=== PATIENT | male | born 1945 | race Caucasian/White ===

== ENCOUNTER → 2025-02-01 12:36 | Outpatient (REF) | payer MEDICARE, SELFPAY | LOC: RAD 12:36 | PROVIDERS: ATTENDING PHYSICIAN Specialist; FAMILY PHYSICIAN Internal Medicine | DX: R31.9 Hematuria, unspecified (principal) | CPT/HCPCS: 74176 ==

== ENCOUNTER 2025-02-13 06:16 | Day surgery (SDC) | payer MEDICARE, SELFPAY ==
[2025-02-05 14:11] VITALS: BMI 31.9
[2025-02-13] VITALS (12 sets, daily range): BP systolic 79–161; BP diastolic 58–83; BMI 31.9
[2025-02-13 08:57] LABS: Glucose - Point of Care 148 mg/dl (70-99)
[2025-02-13] MEDS: NORMOSOL-R/PLASMALYTE-A 1000 IV (09:01)
[2025-02-13 10:54] LABS: Glucose - Point of Care 110 mg/dl (70-99)
== END 2025-02-13 13:05 | disposition home or self-care (01) ==
LOC: SDS 06:16
PROVIDERS: ATTENDING PHYSICIAN Specialist; FAMILY PHYSICIAN Internal Medicine
DX: N35.911 Unspecified urethral stricture, male, meatal (principal); N30.20 Other chronic cystitis without hematuria
CPT/HCPCS: 52204; 76000; 82962; 87077; 87086; 87186; 88305

== ENCOUNTER 2025-03-02 10:38 | Inpatient (IN) | payer MEDICARE, SELFPAY ==
--- NOTE | 2025-02-23 10:54 | PTCARENOTE ---
Charlotte in office made aware of urine culture result from 02/13/25.
[2025-03-02] VITALS (14 sets, daily range): BP systolic 131–185; BP diastolic 65–83; BMI 32.3
[2025-03-02 07:48] LABS: Glucose - Point of Care 125 mg/dl (70-99)
--- NOTE | 2025-03-02 09:38 | W.PN.ADMIT ---
Progress Note - Admit
Progress Note - Admit
pt s/p TURP
admit for antibx and CBI
[2025-03-02 09:47] LABS: Glucose - Point of Care 120 mg/dl (70-99)
[2025-03-02 10:31] LABS: Hematocrit 41.7 % (39.0-52.0); Hemoglobin 14.5 g/dL (13.0-18.0); Mean Corp Hgb Conc. 34.8 g/dL (33.0-37.0); Mean Corpuscular Volume 89.3 fL (80.0-94.0); Platelet Count 198 10^3/uL (130-400); Red Cell Dist. Width 14.0 % (11.5-14.5)
--- NOTE | 2025-03-02 10:47 | CON.CAR ---
Addendum entered and electronically signed by Doroteo Don MD 03/02/25 12:29:
I saw and examined the patient.
The Hearing Aid Repairer's note was reviewed and I agree with the note.
Comment:
GEN: No distress, awake, Ox3
HEENT: supple, anicteric, mmm
LUNGS: CTA, no wheezes/rales
CV: Reg, S1/S2, 1/6 syst LSB, no gallop
ABD: soft, BS+, NT/ND
EXT: No edema
NEURO: Gross non-focal
SKIN: No rash
Plan:
80-year-old male with past medical history of hypertension, hyperlipidemia, diabetes and tremors presents for elective TURP procedure today. Patient was found on heart monitor to have heart block, second-degree Mobitz type I. The patient denies
any history of syncope, lightheadedness or previous heart issues. Prior EKG does have first-degree AV block with right bundle branch block. The patient does take propranolol 120 mg daily for tremors.
Recommend hold propranolol and continue to follow on telemetry. No indication for pacemaker at this time.
His blood pressure is elevated. Would continue hydralazine and lisinopril.
Will check echocardiogram. Cardiac troponin is negative.
Original Note:
Consultation
Consultation Request
Date/Time Consultation Performed: 03/02/25
Requesting Provider: Dr. Sharma
Performing Provider: Maria D Mishra PA-C for Dr. Don
Reason for Consultation: bradycardia
Medical History
-
Chief Complaint: TURP
History of Present Illness:
Patient is an 80 yo M with PMH of HTN, HLD, DM2, tremor, recurrent UTI, BPH who underwent TURP procedure today. Post procedure noted to have bradycardia with concern for heart block resulting in cardiology consultation. Patient has never needed to
see a quality reviewer before. He denies lightheadedness/dizziness, presyncope or syncope as OP. He is on propranolol 120mg HS due to tremor. Cardiology consulted for evaluation.
PMH:
HTN
HLD
DM2
tremor
recurrent UTI
BPH
Past Medical History
Past Medical History: Other (in HPI)
Social History
Tobacco: Non-Smoker
Personal:
Living: With Family
Allergies / Home Medications
Allergy/AdvReac Type Severity Reaction Status Date / Time
No Known Allergies Allergy Verified 03/02/25 07:41
�Medication �Instructions �Recorded �Confirmed �Type
doxepin 3 mg tablet 3 mg PO HS 02/06/25 03/02/25 History
finasteride 5 mg tablet 5 mg PO DAILY 02/06/25 03/02/25 History
hydralazine 50 mg tablet 50 mg PO BID 02/06/25 03/02/25 History
insulin degludec 100 unit/mL (3 32 unit SC BID 02/06/25 03/02/25 History
mL) subcutaneous pen (Tresiba
FlexTouch U-100 insulin)
latanoprost (PF) 0.005 % eye drops 1 drp ophthalmic (eye) QPM 02/06/25 03/02/25 History
in a dropperette
lisinopril 20 mg tablet 20 mg PO DAILY 02/06/25 03/02/25 History
melatonin 10 mg tablet 10 mg PO HS PRN INSOMNIA 02/06/25 03/02/25 History
metformin 500 mg tablet,extended 500 mg PO DAILY 02/06/25 03/02/25 History
release 24hr (osmotic)
primidone 50 mg tablet 250 mg PO BID 02/06/25 03/02/25 History
propranolol 60 mg capsule,24 120 mg PO HS TREMORS 02/06/25 03/02/25 History
hr,extended release
tamsulosin 0.4 mg capsule 0.4 mg PO BID 02/06/25 03/02/25 History
Review of Systems
-
History Source: Patient
All other systems: Negative unless noted
Physical Exam
Vital Signs
Temp Pulse Resp BP Pulse Ox
97.6 F 49 16 150/75 92
03/02/25 09:45 03/02/25 10:20 03/02/25 10:20 03/02/25 10:20 03/02/25 10:30
Lab Results
03/02/25 10:21
Physical Exam
General: No Apparent Distress and Comfortable
HEENT: Normocephalic, Anicteric and Moist Mucous Membranes
Respiratory: Clear and Non Labored Respirations
Cardiac: S1/S2, Regular Rhythm and Other (sofiya)
GI: Soft, Non Tender, Non Distended and Normal Bowel Sounds
Musculoskeletal: No Clubbing, No Cyanosis and Edema (trace of B/L LE)
Skin: Warm and Dry
Neuro: AO x 3
Impression / Plan
-
Primary Home Sales Service Professional: none prior to admission
Assessment:
s/p TURP 03/02/25
[place], asymptomatic
HTN
HLD
DM2
tremor
recurrent UTI
BPH
ECHO 03/02/25: pending
Plan:
- Patient presented for elective TURP procedure 03/02/2025
- Cardiology consulted while patient in PACU due to concern for heart block and bradycardia
- On review of EKG, appears to be in [place]. Patient asymptomatic. Likely secondary to chronic propranolol 120 mg nightly and anesthesia
- Would hold propranolol today and following on tele. consider resuming propranolol at lower dose in AM
- Check echo
- Check TSH
- given hypertension, would continue OP lisinopril and order IV hydralazine PRN
- d/w PACU nursing, urology
Data Reviewed
-
EKG: Tracing Personally Visualized and interpreted
Labs: Labs Reviewed by me
Old Records: Reviewed
[2025-03-02 10:48] LABS: INR 1.15; PT 15.0 Sec (11.4-14.6)
[2025-03-02 10:49] LABS: APTT 31.9 Sec (23.4-35.0)
[2025-03-02 10:51] LABS: ALT (SGPT) 28 U/L (0-50); AST (SGOT) 33 U/L (17-59); Albumin 3.7 g/dl (3.5-5.0); Alkaline Phosphatase 82 U/L (38-126); Blood Urea Nitrogen 18 mg/dl (9-20); Calcium 8.3 mg/dl (8.4-10.2); Carbon Dioxide 28 mmol/L (22-30); Chloride 99 mmol/L (98-107); Estimated Creatinine Clearance 68 ml/min; Glucose 125 mg/dl (70-99); Potassium 4.0 mmol/L (3.5-5.1); Sodium 134 mmol/L (135-145); Total Protein 6.7 g/dl (6.3-8.2); eGFR > 60.00
--- NOTE | 2025-03-02 10:54 | W.PN.UPDATE ---
Update Note
Progress Note Update
in pacu- pt had asymptomatic bradycardia
stable
urine clear
cardiology consulted- will observe on tele for now
updated
[2025-03-02 11:01] LABS: Troponin I < 0.012 ng/ml
[2025-03-02] MEDS: APRESOLINE 5 MG IV (12:17)
[2025-03-02 12:34] LABS: Glucose - Point of Care 109 mg/dl (70-99)
[2025-03-02] MEDS: NOVOLOG FLEXPEN-LOW RESISTANCE SC (12:41)
[2025-03-02] MEDS: NSS 1000 IV ×2 (12:42→22:27)
--- NOTE | 2025-03-02 15:10 | PTCARENOTE ---
Per Dr. Sharma's order, released harvey traction/rubber band; patient resting comfortably.
[2025-03-02 16:17] LABS: Glucose - Point of Care 243 mg/dl (70-99)
[2025-03-02] MEDS: AMOXIL 500 MG PO (16:50)
[2025-03-02] MEDS: NOVOLOG FLEXPEN-LOW RESISTANCE 2 UNITS SC (16:52)
[2025-03-02] MEDS: XALATAN OPHTHALMIC SOLUTION 1 DROP BOTH EYES (18:11)
[2025-03-02] MEDS: APRESOLINE 50 MG PO (19:56)
[2025-03-02] MEDS: FLORASTOR 250 MG PO (19:56)
[2025-03-02] MEDS: MYSOLINE 250 MG PO (19:56)
[2025-03-02] MEDS: FLOMAX 0.4 MG PO (19:57)
[2025-03-02] MEDS: COLACE 100 MG PO (19:57)
[2025-03-02] MEDS: LANTUS 0.32 UNITS SC (20:42)
[2025-03-02 21:43] LABS: Glucose - Point of Care 205 mg/dl (70-99)
[2025-03-02] MEDS: INDERAL LA 120 MG PO (22:22)
[2025-03-02] MEDS: SINEQUAN 3 MG PO (22:27)
[2025-03-03] MEDS: AMOXIL 500 MG PO ×4 (00:47→23:55)
[2025-03-03 02:39] VITALS: BP 160/73
--- NOTE | 2025-03-03 05:25 | PTCARENOTE ---
SBAR: PT is on tele and has had changes to A fib/is on cardiac meds , tele shows heart block pt has now changes form Mobitz I to Mobitz II and is in and out of A-fib, am MAG and EKG ordered. Cardiac consulted noted and propranolol placed on hold
per LINUX NETWORK ENGINEER
--- NOTE | 2025-03-03 05:29 | SUR.OPER ---
EKG: SR with Mobit II 2nd degree heart block RBBB BAR MACHINE OPERATOR PRODUCTION notified
[2025-03-03 06:34] LABS: Hematocrit 42.8 % (39.0-52.0); Hemoglobin 14.6 g/dL (13.0-18.0); Mean Corp Hgb Conc. 34.1 g/dL (33.0-37.0); Mean Corpuscular Volume 90.5 fL (80.0-94.0); Platelet Count 209 10^3/uL (130-400); Red Cell Dist. Width 13.6 % (11.5-14.5)
[2025-03-03 06:35] LABS: Glucose - Point of Care 60 mg/dl (70-99)
[2025-03-03 06:58] LABS: ALT (SGPT) 24 U/L (0-50); AST (SGOT) 30 U/L (17-59); Albumin 3.6 g/dl (3.5-5.0); Alkaline Phosphatase 69 U/L (38-126); Blood Urea Nitrogen 12 mg/dl (9-20); Calcium 8.3 mg/dl (8.4-10.2); Carbon Dioxide 26 mmol/L (22-30); Chloride 106 mmol/L (98-107); Estimated Creatinine Clearance 76 ml/min; Glucose 63 mg/dl (70-99); Magnesium 2.0 mg/dl (1.6-2.3); Potassium 3.9 mmol/L (3.5-5.1); Sodium 137 mmol/L (135-145); Total Protein 6.4 g/dl (6.3-8.2); eGFR > 60.00
[2025-03-03 07:00] LABS: Glucose - Point of Care 81 mg/dl (70-99)
[2025-03-03] MEDS: NOVOLOG FLEXPEN-LOW RESISTANCE SC ×2 (07:20→11:49)
[2025-03-03 07:25] VITALS: BP 156/66
[2025-03-03] MEDS: APRESOLINE 50 MG PO ×3 (08:21→21:26)
[2025-03-03] MEDS: PROSCAR 5 MG PO (08:21)
[2025-03-03] MEDS: FLOMAX 0.4 MG PO ×2 (08:21→20:08)
[2025-03-03] MEDS: COLACE 100 MG PO (08:21)
[2025-03-03] MEDS: ZESTRIL 20 MG PO (08:21)
[2025-03-03] MEDS: GLUCOPHAGE XR EXTENDED RELEASE 500 MG PO (08:21)
[2025-03-03] MEDS: FLORASTOR 250 MG PO ×2 (08:22→20:07)
[2025-03-03] MEDS: LANTUS SC (08:25)
[2025-03-03] MEDS: MYSOLINE PO (08:41)
--- NOTE | 2025-03-03 08:49 | W.PN.CARDCBS ---
Today's Communication / Plan
-
DC propranolol
Continue to follow on telemetry
There is no atrial fibrillation, I reviewed his telemetry and his rhythm continues to be sinus with second-degree AV block type I.
No indication for pacemaker at this time, continue to observe and remain off all AV thaddeus blockers
Continue lisinopril and increase hydralazine for blood pressure control
Continue postop care
Impression / Plan
-
Primary Corporate Fitness Program Coordinator: none prior to admission
Assessment:
s/p TURP 03/02/25
Second-degree AV block Mobitz type I Sandeep, asymptomatic
Right bundle branch block
HTN
HLD
DM2
tremor
recurrent UTI
BPH
ECHO 03/02/25: pending
Plan:
- Patient presented for elective TURP procedure 03/02/2025
-He continues to have episodes of second-degree AV block. I reviewed his telemetry and there is no atrial fibrillation. Will DC propranolol.
-Continue to observe. He is asymptomatic at this time.
-His blood pressure remains somewhat elevated. Continue lisinopril. Will increase hydralazine to 50 mg 3 times daily.
Hemoglobin stable at 14.6.
Continue postop care for TURP
- d/w PACU nursing, urology
Progress Note - Corporate Fitness Program Coordinator
Subjective
Date of Service: March 03, 2025
Overall feels well. Denies dizziness or palpitations.
Objective
Labs:
03/03/25 05:49
03/03/25 05:49
Labs
Hgb 14.6 g/dL (13.0-18.0) 03/03/25 05:49
Hct 42.8 % (39.0-52.0) 03/03/25 05:49
Plt Count 209 10^3/uL (130-400) 03/03/25 05:49
PT 15.0 Sec (11.4-14.6) H 03/02/25 10:22
INR 1.15 03/02/25 10:22
APTT 31.9 Sec (23.4-35.0) 03/02/25 10:22
Sodium 137 mmol/L (135-145) 03/03/25 05:49
Potassium 3.9 mmol/L (3.5-5.1) 03/03/25 05:49
BUN 12 mg/dl (9-20) 03/03/25 05:49
Creatinine 0.8 mg/dL (0.7-1.3) 03/03/25 05:49
Glucose 63 mg/dl (70-99) L 03/03/25 05:49
Troponins
03/02/25 03/02/25
10:20 10:21
Troponin I Cancelled < 0.012
Vital Signs and I&O:
Vital Signs
Temp Pulse Resp BP Pulse Ox
98.6 F 63 18 156/66 98
03/03/25 07:25 03/03/25 08:21 03/03/25 07:25 03/03/25 08:21 03/03/25 07:25
Vital Signs
Temp Pulse Resp BP Pulse Ox
98.6 F 63 18 156/66 98
03/03/25 07:25 03/03/25 08:21 03/03/25 07:25 03/03/25 08:21 03/03/25 07:25
Intake & Output
03/01/25 03/02/25 03/03/25 03/04/25
06:59 06:59 06:59 06:59
Intake Total 1640 / 1640
Output Total 3500 / 3500
Balance -0 / -1860
Physical Exam
Physical Exam
GEN: No distress, awake, Ox3
HEENT: supple, anicteric, mmm
LUNGS: CTA, no wheezes/rales
CV: Reg, S1/S2, 1/6 syst LSB, no gallop
ABD: soft, BS+, NT/ND
EXT: No edema
NEURO: Gross non-focal
SKIN: No rash
--- NOTE | 2025-03-03 08:59 | PTCARENOTE ---
call center receptionist bookie notified of pt HR dipping into the 30's and hanging out in the 40's. The EKG overnight showed a critical test result for SR with 2nd degree AV block with 2:1 AV conduction RBBB and environmental compliance specialist cardiology Dr Chaudhari notified.
Cardiology consult placed. Care ongoing.
[2025-03-03 09:19] LABS: Glucose - Point of Care 108 mg/dl (70-99)
[2025-03-03] MEDS: MYSOLINE 250 MG PO ×2 (09:40→20:07)
--- NOTE | 2025-03-03 10:18 | W.PN.URO.CBU ---
Today's Communication / Plan
-
routine post op care
continue cardiac monitoring
Assessment / Plan
-
BPH
urethral stx
persistent enterococcal UTI
s/p TURP
post op bradycardia- heart block
pt doing well
HR back to baseline- appreciate cardiology help
urologically- routine post op care- UOOB/advance diet/wean cbi
continue amoxicillin
cbi off at midnight- harvey out in am
plan discharge tomorrow
Diagnosis
-
Date of Service: March 03, 2025
-
Patient Diagnosis:
bph
chronic cystitis/prostatitis
urethral stricture
Post Op Day:
TURP 03/02
Subjective
-
pt doing well
HR stable
urine peach on light cbi
Objective
-
Vital Signs
Temp Pulse Resp BP Pulse Ox
98.6 F 63 18 156/66 98
03/03/25 07:25 03/03/25 08:21 03/03/25 07:25 03/03/25 08:21 03/03/25 07:25
Intake and Output
03/02/25 03/03/25 03/04/25
06:59 06:59 06:59
Intake Total 1640 / 1640
Output Total 3500 / 3500
Balance -1860 / -1860
Intake:
Oral fluids 1080 / 1080
IV fluids (Total) 560 / 560
Output:
True Urine Output from CBI 3500 / 3500
Laboratory Results
03/03/25 05:49
03/03/25 05:49
Review of Systems
-
Constitutional: No Symptoms
Respiratory: No Symptoms
Cardiac: No Symptoms
Abdomen/GI: No Symptoms
Physical Exam
-
General - no acute distress
Abdomen - soft, non-tender
Genitalia - [address]
[2025-03-03 11:43] LABS: Glucose - Point of Care 95 mg/dl (70-99)
[2025-03-03 12:05] VITALS: BP 153/71
[2025-03-03 14:43] LABS: Glycohemoglobin (HgbA1c) 8.3 % (4.0-5.6)
[2025-03-03 15:10] VITALS: BP 141/66
[2025-03-03 16:44] LABS: Glucose - Point of Care 168 mg/dl (70-99)
[2025-03-03] MEDS: NOVOLOG FLEXPEN-LOW RESISTANCE 1 UNITS SC (16:44)
[2025-03-03] MEDS: XALATAN OPHTHALMIC SOLUTION 1 DROP BOTH EYES (17:29)
[2025-03-03 19:00] VITALS: BP 134/94
[2025-03-03] MEDS: COLACE PO (20:07)
[2025-03-03 20:53] LABS: Glucose - Point of Care 228 mg/dl (70-99)
[2025-03-03] MEDS: LANTUS 0.32 UNITS SC (21:26)
[2025-03-03] MEDS: SINEQUAN 3 MG PO (21:27)
[2025-03-03 23:00] VITALS: BP 154/73
[2025-03-04 03:00] VITALS: BP 132/71
[2025-03-04 03:06] LABS: Glucose - Point of Care 106 mg/dl (70-99)
[2025-03-04 07:10] VITALS: BP 126/82
[2025-03-04 08:01] LABS: Glucose - Point of Care 195 mg/dl (70-99)
[2025-03-04] MEDS: NOVOLOG FLEXPEN-LOW RESISTANCE 1 UNITS SC (08:08)
[2025-03-04] MEDS: FLOMAX 0.4 MG PO (08:10)
[2025-03-04] MEDS: COLACE 100 MG PO (08:10)
[2025-03-04] MEDS: ZESTRIL 20 MG PO (08:10)
[2025-03-04] MEDS: PROSCAR 5 MG PO (08:10)
[2025-03-04] MEDS: FLORASTOR 250 MG PO (08:10)
[2025-03-04] MEDS: MYSOLINE 250 MG PO (08:10)
[2025-03-04] MEDS: AMOXIL 500 MG PO (08:10)
[2025-03-04] MEDS: APRESOLINE 50 MG PO (08:10)
[2025-03-04] MEDS: GLUCOPHAGE XR EXTENDED RELEASE 500 MG PO (08:11)
--- NOTE | 2025-03-04 09:12 | W.PN.URO.CBU ---
Today's Communication / Plan
-
Bertrand out this AM
D/c home later today after VT
Assessment / Plan
-
BPH
Urethral strciture
Persistent enterococcal UTI
s/p TURP
post op bradycardia- heart block
Clinically stable post-op
HR back to baseline - appreciate Cardiology input
Continue amoxicillin
Diagnosis
-
Date of Service: March 04, 2025
-
Patient Diagnosis:
bph
chronic cystitis/prostatitis
urethral stricture
Post Op Day:
TURP 03/02
Subjective
-
CBI clamped - pink-tinged w/o clots in tubing.
Bertrand catheter removed w/o event.
Objective
-
Vital Signs
Temp Pulse Resp BP Pulse Ox
97.7 F 93 18 126/82 98
03/04/25 07:10 03/04/25 08:10 03/04/25 07:10 03/04/25 08:10 03/04/25 07:10
Intake and Output
03/03/25 03/04/25 03/05/25
06:59 06:59 06:59
Intake Total 1640 / 1640 1570 / 1570 480 / 480
Output Total 3500 / 3500 2450 / 2450 650 / 650
Balance -1860 / -1860 -880 / -880 -170 / -170
Intake:
Oral fluids 1080 / 1080 1220 / 1220 480 / 480
IV fluids (Total) 560 / 560 350 / 350
Output:
True Urine Output from CBI 3500 / 3500 2450 / 2450 650 / 650
Laboratory Results
03/03/25 05:49
03/03/25 05:49
Physical Exam
-
General - well developed, well nourished, no acute distress
Abdomen - soft, non-tender, non-distended
Genitalia - normal
Skin - warm & dry with no rash
Extremities - no clubbing, no cyanosis, no edema
Care Review
Data Reviewed
Discussed with: Cardiology and Nursing
Total Time Spent with Patient (in minutes): 40
--- NOTE | 2025-03-04 09:15 | W.DS.TRANS ---
DC Summary - Operations Research Manager
-
Discharge Instructions:
Sleep Apnea Risk Intermediate
Discharge Diagnosis/Procedures you had a transurethral resection of the
prostate
Diet No restrictions
Activity No strenuous activity
Additional Activity no lifting over 10lbs for 10 days
Driving Restrictions No driving for 1 week
Bathing Restrictions OK to Shower
Wound Care expect some blood in urine and some frequency/
urgency adn occ leak
Instructions:
Stand-Alone Forms:
Changes to Home Medications: No
Discharge Medications:
DC Medications w/original date entered in [employer]
doxepin 3 mg tablet 3 mg PO HS Sleep 02/06/25
finasteride 5 mg tablet 5 mg PO DAILY Urinary Issue 02/06/25
hydralazine 50 mg tablet 50 mg PO BID Blood Pressure 02/06/25
insulin degludec 100 unit/mL (3 mL) subcutaneous pen (Tresiba FlexTouch U-100 insulin) 32 unit SC BID Diabetes 02/06/25
latanoprost (PF) 0.005 % eye drops in a dropperette 1 drp ophthalmic (eye) QPM Eye Condition 02/06/25
lisinopril 20 mg tablet 20 mg PO DAILY Blood Pressure 02/06/25
melatonin 10 mg tablet 10 mg PO HS PRN INSOMNIA 02/06/25
metformin 500 mg tablet,extended release 24hr (osmotic) 500 mg PO DAILY Diabetes 02/06/25
primidone 50 mg tablet 250 mg PO BID Seizures 02/06/25
propranolol 60 mg capsule,24 hr,extended release 120 mg PO HS TREMORS 02/06/25
tamsulosin 0.4 mg capsule 0.4 mg PO BID Urinary Issue 02/06/25
Home Medication Changes
Pending Results: Yes
Additional Pending Results:
surgical pathology
Total time spent discharging patient (in min): 40
[2025-03-04 09:29] LABS: Glucose - Point of Care 269 mg/dl (70-99)
[2025-03-04] MEDS: LANTUS 0.32 UNITS SC (09:29)
--- NOTE | 2025-03-04 09:39 | W.DS.TRANS ---
DC Summary - Telephone Operators Supervisor
-
Discharge Instructions:
Sleep Apnea Risk Intermediate
Discharge Diagnosis/Procedures you had a transurethral resection of the
prostate
Diet No restrictions
Activity No strenuous activity
Additional Activity no lifting over 10lbs for 10 days
Driving Restrictions No driving for 1 week
Bathing Restrictions OK to Shower
Wound Care expect some blood in urine and some frequency/
urgency adn occ leak
Instructions:
Stand-Alone Forms:
Changes to Home Medications: No
Discharge Medications:
DC Medications w/original date entered in [employer]
doxepin 3 mg tablet 3 mg PO HS Sleep 02/06/25
finasteride 5 mg tablet 5 mg PO DAILY Urinary Issue 02/06/25
hydralazine 50 mg tablet 50 mg PO BID Blood Pressure 02/06/25
insulin degludec 100 unit/mL (3 mL) subcutaneous pen (Tresiba FlexTouch U-100 insulin) 32 unit SC BID Diabetes 02/06/25
latanoprost (PF) 0.005 % eye drops in a dropperette 1 drp ophthalmic (eye) QPM Eye Condition 02/06/25
lisinopril 20 mg tablet 20 mg PO DAILY Blood Pressure 02/06/25
melatonin 10 mg tablet 10 mg PO HS PRN INSOMNIA 02/06/25
metformin 500 mg tablet,extended release 24hr (osmotic) 500 mg PO DAILY Diabetes 02/06/25
primidone 50 mg tablet 250 mg PO BID Seizures 02/06/25
tamsulosin 0.4 mg capsule 0.4 mg PO BID Urinary Issue 02/06/25
Home Medication Changes
Pending Results: Yes
Additional Pending Results:
surgical pathology
Total time spent discharging patient (in min): 40
[2025-03-04 11:05] VITALS: BP 164/86
[2025-03-04 11:29] LABS: Glucose - Point of Care 205 mg/dl (70-99)
[2025-03-04 12:05] VITALS: BP 159/86
[2025-03-04] MEDS: NOVOLOG FLEXPEN-LOW RESISTANCE 2 UNITS SC (12:33)
== END 2025-03-04 13:00 | disposition home or self-care (01) | DRG 713 ==
LOC: 2 SOUTH 10:38
PROVIDERS: Student in an Organized Health Care Education/Training Program; ADMITTING PHYSICIAN Specialist; CONSULT PHYSICIAN Internal Medicine Cardiovascular Disease
PROC: 0VT08ZZ Resection of Prostate, Via Natural or Artificial Opening Endoscopic (ICD-10-PCS; 2025-03-02)
DX: N40.1 Benign prostatic hyperplasia with lower urinary tract symptoms (principal); N39.0 Urinary tract infection, site not specified; B95.2 Enterococcus as the cause of diseases classified elsewhere; N35.911 Unspecified urethral stricture, male, meatal; E78.5 Hyperlipidemia, unspecified; I10 Essential (primary) hypertension; I44.1 Atrioventricular block, second degree; I44.0 Atrioventricular block, first degree; I45.10 Unspecified right bundle-branch block; Z79.899 Other long term (current) drug therapy; R25.1 Tremor, unspecified; E11.9 Type 2 diabetes mellitus without complications; Z79.4 Long term (current) use of insulin; Z79.84 Long term (current) use of oral hypoglycemic drugs; Z87.440 Personal history of urinary (tract) infections
CPT/HCPCS: 80053; 82962; 83036; 83735; 84484; 85027; 85610; 85730; 88305; 93005

== ENCOUNTER → 2025-03-20 13:37 | Outpatient (REF) | payer MEDICARE, SELFPAY | LOC: HWRCS 13:37 | PROVIDERS: ATTENDING PHYSICIAN Physician Assistant Medical; FAMILY PHYSICIAN Internal Medicine | DX: I44.1 Atrioventricular block, second degree (principal); I10 Essential (primary) hypertension; R01.1 Cardiac murmur, unspecified | CPT/HCPCS: 93306 ==